=== PATIENT | female | born 1935 | race Caucasian/White ===

== ENCOUNTER 2020-11-06 12:06 | Inpatient (IN) | payer OTHER ==
[~2020-11-06] VITALS: Ht 165.1 cm; Wt 77.1 kg
[2020-11-06] MEDS ORDERED: methylPREDNISolone SOD SUCC 125 MG/2 ML VL IV ONE (12:30)
[2020-11-06 12:56] LABS: Basophils # (auto) 0 10 ^3/uL (0-0.2); Basophils % (auto) 0.2 % (0.0-2.0); Eosinophils # (auto) 0 10 ^3/uL (0-0.8); Eosinophils % (auto) 0.3 % (0.0-7.0); Hematocrit 36.4 % (36.0-46.0); Hemoglobin 12.6 g/dL (12.2-16.2); Lymphocytes # (auto) 0.5 10 ^3/uL (0.4-5.4); Lymphocytes % (auto) 7.8 % (10.0-50.0); Mean Corpuscular Hemoglobin 32.6 pg (28.0-32.0); Mean Corpuscular Hgb Conc. 34.6 g/dL (32.0-36.0); Mean Corpuscular Volume 94.3 fL (80.0-100.0); Monocytes # (auto) 0.8 10 ^3/uL (0-1.3); Monocytes % (auto) 11.4 % (0.0-12.0); Neutrophils # (auto) 5.6 10 ^3/uL (1.6-8.6); Neutrophils % (auto) 80.3 % (37.0-80.0); Nucleated Red Blood Cells % 0.2 %; Red Blood Cells 3.86 10^6/uL (4.0-5.20); Red Cell Distribution Width 12.9 % (11.8-14.3); White Blood Cell 6.9 10^3/uL (4.4-10.8)
[2020-11-06 13:33] LABS: Albumin 2.5 g/dL (3.4-5.0); Anion Gap 8 (5-15); Blood Urea Nitrogen 43 mg/dL (7-18); Calcium 8.5 mg/dL (8.5-10.1); Carbon Dioxide 29 mmol/L (21-32); Chloride 99 mmol/L (98-107); Glucose 115 mg/dL (74-106); Sodium 136 mmol/L (136-145)
[2020-11-06 13:41] LABS: Alanine Aminotransferase 73 U/L (13-56); Alkaline Phosphatase 98 U/L (45-117); Aspartate Aminotransferase 135 U/L (15-37); BUN/Creatinine Ratio 28.3; Bilirubin, Total 0.7 mg/dL (0.2-1.0); GFR African American 42 mL/min; GFR Non-African American 34 mL/min; Total Protein 7.4 g/dL (6.4-8.2)
[2020-11-06 13:43] LABS: CRP High Sensitivity > 19 mg/dL (< 0.3)
[2020-11-06 13:46] LABS: Potassium 2.9 mmol/L (3.5-5.1)
[2020-11-06] MEDS ORDERED: POTASSIUM CHL 20MEQ/100ML 100 ML IV ONE (14:15)
[2020-11-06] MEDS ORDERED: MORPHINE SULFATE INJECTION 2 MG/ML SYRG IV PRN (14:45)
[2020-11-06] MEDS ORDERED: NITROGLYCERIN 0.4 MG SL TAB SL PRN (14:45)
[2020-11-06] MEDS ORDERED: SODIUM CHLORIDE 0.9% 1,000 ML IV ONE (14:45)
[2020-11-06] MEDS ORDERED: POTASSIUM CHL 20 Meq TABLET PO ONE (14:45)
[2020-11-06 16:02] LABS: INR 7.84 (0.9-1.15)
[2020-11-06] MEDS ORDERED: PHYTONADIONE (VIT K)10 MG/ML 1ML VIAL SUBCUT ONE (19:00)
[2020-11-06 20:46] VITALS: BP 141/83
[2020-11-06] MEDS ORDERED: phytonadione 10 MG in SODIUM CHL 0.9% 50 ML IV ONE (22:00)
[2020-11-06] MEDS: diphenhdrAMINE HCL 25 MG CAP PO PRN (22:44)
[2020-11-06] MEDS: ASCORBIC ACID 500 MG TAB PO SCH (22:44)
[2020-11-07 00:15] VITALS: BP 138/69
[2020-11-07 08:05] VITALS: BP 160/89
[2020-11-07] MEDS ORDERED: ENOXAPARIN SOD 30 MG/0.3 ML SYRINGE SC SCH (10:00)
[2020-11-07 10:02] LABS: INR 1.46 (0.9-1.15)
[2020-11-07] MEDS: AZITHROMYCIN 500MG/ 250ML 250 ML IV SCH (10:17)
[2020-11-07] MEDS: ASCORBIC ACID 500 MG TAB PO SCH ×2 (10:18→20:21)
[2020-11-07] MEDS: ZINC SULFATE 220mg CAP or TAB PO SCH (10:18)
[2020-11-07 10:22] LABS: Calcium 8.6 mg/dL (8.5-10.1); Potassium 3.4 mmol/L (3.5-5.1)
[2020-11-07] MEDS: DexAMETHasone INJECTION 10 MG in D5W 5% 50 ML IV SCH (15:52)
[2020-11-07 16:00] VITALS: BP 147/83
[2020-11-07] MEDS: diphenhdrAMINE HCL 25 MG CAP PO PRN (21:39)
[2020-11-07] MEDS ORDERED: AMIODARONE HCL 200 MG TAB PO SCH (22:00)
[2020-11-07 23:54] VITALS: BP_SYST 153; BP_SYST 86; BP_DIAS 83; BP_DIAS 86
[2020-11-08 08:00] VITALS: BP 155/93
[2020-11-08 08:57] LABS: Basophils # (auto) 0 10 ^3/uL (0-0.2); Basophils % (auto) 0.2 % (0.0-2.0); Eosinophils # (auto) 0 10 ^3/uL (0-0.8); Red Cell Distribution Width 13.2 % (11.8-14.3)
[2020-11-08 08:59] LABS: Hematocrit 39.3 % (36.0-46.0); Hemoglobin 12.9 g/dL (12.2-16.2); Lymphocytes # (auto) 0.5 10 ^3/uL (0.4-5.4); Lymphocytes % (auto) 3.8 % (10.0-50.0); Mean Corpuscular Hgb Conc. 32.8 g/dL (32.0-36.0); Mean Corpuscular Volume 94.5 fL (80.0-100.0); Monocytes # (auto) 0.7 10 ^3/uL (0-1.3); Monocytes % (auto) 4.7 % (0.0-12.0); Neutrophils # (auto) 12.8 10 ^3/uL (1.6-8.6); Neutrophils % (auto) 91.3 % (37.0-80.0); Red Blood Cells 4.16 10^6/uL (4.0-5.20)
[2020-11-08 09:11] LABS: Potassium 4.1 mmol/L (3.5-5.1)
[2020-11-08 09:13] LABS: INR 1.18 (0.9-1.15)
[2020-11-08 09:16] LABS: Albumin 2.7 g/dL (3.4-5.0); BUN/Creatinine Ratio 32.3; Bilirubin, Total 0.7 mg/dL (0.2-1.0); Calcium 9.2 mg/dL (8.5-10.1); Total Protein 7.6 g/dL (6.4-8.2)
[2020-11-08] MEDS: AZITHROMYCIN 500MG/ 250ML 250 ML IV SCH (09:38)
[2020-11-08] MEDS: ZINC SULFATE 220mg CAP or TAB PO SCH (09:39)
[2020-11-08] MEDS: ASCORBIC ACID 500 MG TAB PO SCH (09:39)
[2020-11-08] MEDS: DexAMETHasone INJECTION 10 MG in D5W 5% 50 ML IV SCH (10:00)
[2020-11-08] MEDS ORDERED: ENOXAPARIN SOD 30 MG/0.3 ML SYRINGE SC SCH (10:00)
== END 2020-11-08 13:00 | disposition home health service (06) | DRG 177 ==
LOC: ER 12:06 → TELE-WESTW 12:07 → ER 21:03 → TELE-WESTW 11-07 19:52
PROVIDERS: ADMIT Family Medicine; ATTEND Internal Medicine
DX: U07.1 COVID-19 (principal); J12.82 Pneumonia due to coronavirus disease 2019; J96.01 Acute respiratory failure with hypoxia; N17.9 Acute kidney failure, unspecified; J44.0 Chronic obstructive pulmonary disease with (acute) lower respiratory infection; I27.20 Pulmonary hypertension, unspecified; E87.6 Hypokalemia; I10 Essential (primary) hypertension; I48.91 Unspecified atrial fibrillation; E03.9 Hypothyroidism, unspecified; E86.0 Dehydration; Z90.710 Acquired absence of both cervix and uterus
CPT/HCPCS: 36415; 36600; 71045; 71250; 80048; 80053; 82728; 82805; 83880; 84484; 85025; 85379; 85610; 86141; 87040; 87077; 87186; 87426; 93005; 96361; 96374; G0378; J1100; J3430; J7060